=== PATIENT | female | born 1985 ===

== ENCOUNTER 2020-08-10 12:45 | Inpatient (IN) | payer OTHER ==
[~2020-08-10] VITALS: Ht 149.9 cm; Wt 57.2 kg
[2020-08-19] MEDS ORDERED: PRENATAL CAPLE1 EAC1 PO (10:52)
== END 2020-08-21 11:52 | disposition home or self-care (01) | DRG 807 ==
LOC: LDR 08-19 10:32 → OB/GYN 08-19 18:46 → SURH 08-29 12:45 → OB/GYN 08-29 12:45
PROVIDERS: ADMIT Obstetrics & Gynecology; ATTEND Obstetrics & Gynecology
PROC: 10E0XZZ Delivery of Products of Conception, External Approach (ICD-10-PCS; principal; 2020-08-19)
PROC: 0W8NXZZ Division of Female Perineum, External Approach (ICD-10-PCS; 2020-08-19)
PROC: 10907ZC Drainage of Amniotic Fluid, Therapeutic from Products of Conception, Via Natural or Artificial Opening (ICD-10-PCS; 2020-08-19)
PROC: 4A1HXFZ Monitoring of Products of Conception, Cardiac Rhythm, External Approach (ICD-10-PCS; 2020-08-19)
DX: O24.420 Gestational diabetes mellitus in childbirth, diet controlled (principal); Z37.0 Single live birth; Z3A.38 38 weeks gestation of pregnancy; Z20.822 Contact with and (suspected) exposure to COVID-19

== ENCOUNTER 2023-02-12 10:34 | Outpatient (CLI) | payer OTHER ==
[~2023-02-12 10:34] MED LIST: PRENATAL CAPLE1 EAC1 PO
== END 2023-02-12 10:38 | disposition home or self-care (01) ==
LOC: SONOGRAMA 10:34
PROVIDERS: ATTEND Pathology Anatomic Pathology & Clinical Pathology
DX: D36.0 Benign neoplasm of lymph nodes (principal)